=== PATIENT | female | born 1990 | race Caucasian/White ===

== ENCOUNTER → 2025-03-11 | Outpatient (CLI) | LOC: M SOG 13:44 | PROVIDERS: ATTEND Physician Assistant | DX: M25.531 Pain in right wrist (principal); M25.532 Pain in left wrist ==

== ENCOUNTER 2025-10-04 08:23 | Day surgery (SDC) | payer OTHER ==
[~2025-10-04] VITALS: Ht 160 cm; Wt 99.3 kg
[~2025-10-04 08:23] MED LIST: LISI5TAB11 PO; METF500T13 PO; SEMA1.7P SC; SEMA2.4P; SUZE50TA PO
[2025-10-04] MEDS ORDERED: ACETAMINOPHEN 1000MG/100ML IV BAG As Ordered ONE (08:31)
[2025-10-04] MEDS ORDERED: dexAMETHasone 4 MG/ML 1 ML VIAL As Ordered ONE (08:32)
[2025-10-04] MEDS ORDERED: KETOROLAC 30 MG/ML 1 ML VIAL As Ordered ONE (08:32)
[2025-10-04] MEDS ORDERED: ONDANSETRON 4MG/2ML VIAL As Ordered ONE (08:32)
[2025-10-04] MEDS ORDERED: MIDAZOLAM INJ 2 MG/2 ML VIAL As Ordered ONE (08:33)
[2025-10-04] MEDS ORDERED: LIDOCAINE 2% 100 MG/5 ML SDV (FOR ANES.) As Ordered ONE (08:33)
[2025-10-04] MEDS: LR 1,000 ML IV SCH (09:38)
[2025-10-04] MEDS: ceFAZolin SOD 2 GM IV ONCE IV ONE (11:12)
[2025-10-04] MEDS ORDERED: PHENYLephrine 500MCG 5ML (100MCG/ML) SYRINGE As Ordered ONE (11:23)
[2025-10-04] MEDS ORDERED: MORPHINE 2 MG/ML 1 ML VIAL IV PRN (12:20)
[2025-10-04] MEDS ORDERED: HYDROMORPHONE HCL 0.5 MG/0.5 ML SYRINGE IV PRN (12:20)
[2025-10-04] MEDS: ONDANSETRON 4MG/2ML VIAL IV PRN (12:55)
[2025-10-04 13:50] VITALS: BP 117/58; TEMP 97.1; O2SAT 96
== END 2025-10-04 14:25 | disposition home or self-care (01) ==
LOC: M SDC 08:23
PROVIDERS: ATTEND Neuromusculoskeletal Medicine, Sports Medicine
DX: G56.21 Lesion of ulnar nerve, right upper limb (principal); G56.01 Carpal tunnel syndrome, right upper limb; M65.351 Trigger finger, right little finger; Z79.899 Other long term (current) drug therapy
CPT/HCPCS: 26055; 64718; 64721; 81025; J0131; J0665; J0688; J1100; J1885; J2250; J2371; J2405; J3010